=== PATIENT | male | born 1975 | race American Indian/Alaskan Native ===

== ENCOUNTER 2020-12-26 00:30 | Emergency (ER) | payer OTHER ==
[2020-12-26] MEDS ORDERED: predniSONE 20 MG TAB PO ONE (02:42)
[2020-12-26] MEDS ORDERED: IBUPROFEN 800 MG TAB PO ONE (02:42)
--- NOTE | 2020-12-26 02:50 | Emergency Department Report ---
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 Pain described as 5/10 soreness in achy exacerbated by movement and lifting. There is no numbness tingling there is no abrasion laceration or deformity. Range of motion is intact ED Review of Systems ROS: Stated complaint: LT ARM PAIN W/KNOT Other details as noted in HPI Constitutional: denies: chills, fever Eyes: denies: eye pain, eye discharge, vision change ENT: denies: ear pain, throat pain Respiratory: denies: cough, shortness of breath, wheezing Cardiovascular: denies: chest pain, palpitations Endocrine: no symptoms reported Gastrointestinal: denies: abdominal pain, nausea, diarrhea Genitourinary: as per HPI Musculoskeletal: other (forearm pain) Skin: denies: rash, lesions Neurological: denies: headache, weakness, paresthesias Psychiatric: denies: anxiety, depression Hematological/Lymphatic: denies: easy bleeding, easy bruising ED Past Medical Hx - Past Medical History Previous Medical History?: No - Surgical History Past Surgical History?: Yes Hx Cholecystectomy: Yes - Social History Smoking Status: Never Smoker Substance Use Type: None - Medications Home Medications: Home Medications Medication Instructions Recorded Confirmed Last Taken Type HYDROcodone/APAP 10-325 [[place] 1 each PO Q6HR PRN #24 tablet 09/25/13 Unknown Rx 10/325] Promethazine [Phenergan] 25 mg PO Q6H PRN #30 tablet 09/25/13 Unknown Rx Acetaminophen/Codeine [Tylenol #3] 1 tab PO Q6H PRN #15 tab 03/22/15 Unknown Rx Benzonatate [Tessalon Perles] 100 mg PO Q8HR #30 capsule 03/22/15 Unknown Rx Fluticasone [Flonase] 1 spray NS QDAY #1 bottle 03/22/15 Unknown Rx Acetaminophen/Codeine [Tylenol #3] 1 tab PO Q6H PRN #20 tab 10/12/15 Unknown Rx Clindamycin [Clindamycin CAP] 300 mg PO Q6HR #80 capsule 10/12/15 Unknown Rx Ibuprofen [Motrin] 600 mg PO Q8H PRN #40 tablet 10/12/15 Unknown Rx Cyclobenzaprine [Flexeril] 10 mg PO TID PRN #30 tablet 12/26/20 Unknown Rx Menthol/Camphor [[place] 1 applicatio TP Q6H PRN #1 tube 12/26/20 Unknown Rx Ointment] Naproxen 500 mg PO BID PRN #30 tablet 12/26/20 Unknown Rx predniSONE [Deltasone] 40 mg PO QDAY 5 Days #10 tab 12/26/20 Unknown Rx Upper Extremity Exam - Exam General: Vital signs noted. No distress. Alert and acting appropriately. Head and Torso: No HEENT Abnormality, No Neck Tenderness, No Chest/Lungs Abnormality, No Abdominal Tenderness, No Back Tenderness Shoulder Exam: Yes Normal Range of Motion in Shoulder, No Shoulder Tenderness, No Clavicle Tenderness, No Shoulder Deformity, No AC Joint Tenderness Arm Exam: No Arm/Humerus Tenderness, No Arm Deformity Elbow: No Elbow Tenderness, No Normal Range of Motion in Elbow, No Elbow Deformity Forearm: Yes Forearm Tenderness, Yes Pain with Pronation, Yes Pain with Supination, No Forearm Deformity Wrist: Yes Normal ROM in Wrist, No Wrist Tenderness, No Wrist Deformity, No Snuffbox Tenderness, No Pain with Axial Thumb Compression Hand: Yes Digit Tenderness, Yes Normal ROM in Digit(s), No Hand Tenderness, No Hand Deformity, No Digit(s) Deformity, No Tendon Dysfunction CMS Exam: Yes Normal Distal Pulses, Yes Normal Capillary Refill, Yes Normal Distal Sensation, No Broken Skin ED Medical Decision Making - Medical Decision Making This is a muscle strain secondary to overuse. 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 No xiphoid process tenderness PATIENT ASSESSMENT COORDINATOR is less than 3 seconds bilateral. Plan wrist splint, NSAIDs, steroids wrist exercises, moist heat therapy follow-up with PCP in 2 to 3 days. Patient verbalized agreement and understanding with discharge plan. Patient DC'd home in stable condition at this time. Critical care attestation.: If time is entered above; I have spent that time in minutes in the direct care of this critically ill patient, excluding procedure time. ED Disposition Clinical Impression: Strain of forearm, left Qualifiers: Encounter type: initial encounter Qualified Code(s): S56.912A - Strain of unspecified muscles, fascia and tendons at forearm level, left arm, initial encounter Disposition: TO HOME OR SELFCARE Is pt being admited?: No Does the pt Need Aspirin: No Condition: Stable Instructions: Muscle Strain, [id number]-[id number] Prescriptions: predniSONE [Deltasone] 40 mg PO QDAY 5 Days #10 tab Cyclobenzaprine [Flexeril] 10 mg PO TID PRN #30 tablet PRN Reason: Muscle Spasm Naproxen 500 mg PO BID PRN #30 tablet PRN Reason: pain Menthol/Camphor [[place] Ointment] 1 applicatio TP Q6H PRN #1 tube PRN Reason: pain Referrals: DR ALESSANDRO [Other] - 3-5 Days Forms: Work/School Release Form(ED) Time of Disposition: 02:50
== END 2020-12-26 03:00 | disposition home or self-care (01) ==
LOC: ED 00:30
DX: S56.912A Strain of unspecified muscles, fascia and tendons at forearm level, left arm, initial encounter (principal); Z90.49 Acquired absence of other specified parts of digestive tract; Z79.899 Other long term (current) drug therapy; X50.0XXA Overexertion from strenuous movement or load, initial encounter; Y93.89 Activity, other specified; Y92.89 Other specified places as the place of occurrence of the external cause; Y99.0 Civilian activity done for income or pay
CPT/HCPCS: 99282; J7512

== ENCOUNTER 2021-09-11 17:55 | Emergency (ER) | payer OTHER ==
[2021-09-11 18:39] LABS: Basophils % (Auto) 0.3 % (0.0-1.8); Eosinophils # (Auto) 0.1 K/mm3 (0.0-0.4); Eosinophils % (Auto) 2.1 % (0.0-4.3); Hemoglobin 15.5 gm/dl (11.8-15.2); Lymphocytes # (Auto) 0.9 K/mm3 (1.2-5.4); Lymphocytes % (Auto) 16.2 % (13.4-35.0); Mean Corpuscular HGB Conc 33 % (32-34); Mean Corpuscular Volume 84 fl (84-94); Monocytes # (Auto) 0.6 K/mm3 (0.0-0.8); Monocytes % (Auto) 10.1 % (0.0-7.3); Platelet Count 252 K/mm3 (140-440); Red Blood Count 5.63 M/mm3 (3.65-5.03); Red Cell Distribution Width 14.6 % (13.2-15.2)
--- NOTE | 2021-09-11 18:51 | Emergency Department Report ---
ED General Adult HPI - General Chief complaint: Weakness Stated complaint: NO FEELING IN LEGS, BODY PAIN Source: patient, family Mode of arrival: Wheelchair Limitations: No Limitations - History of Present Illness Initial comments: Patient presents to the emergency department with a chief complaint of numbness and tingling from his waist down. Patient states the symptoms started approximately 3 days ago. He states now is not able to move his right leg. Patient states he cannot feel the area between his rectum and his scrotum. He has not had a bowel movement in 2 days. He denies loss of control of his bladder though. He does have a non-Hodgkin's lymphoma. He denies chest pain, shortness breath, or abdominal pain. Patient states he is not able to walk or get up to go to the bathroom due to the inability to move his right leg and the numbness and tingling in his right and left leg. -: Sudden Location: lower extremity Consistency: constant Improves with: none Worsens with: none Associated Symptoms: denies other symptoms Treatments Prior to Arrival: none - Related Data Previous Rx's Medication Instructions Recorded Last Taken Type HYDROcodone/APAP 10-325 [[place] 1 each PO Q6HR PRN #24 tablet 09/25/13 Unknown Rx 10/325] Promethazine [Phenergan] 25 mg PO Q6H PRN #30 tablet 09/25/13 Unknown Rx Acetaminophen/Codeine [Tylenol #3] 1 tab PO Q6H PRN #15 tab 03/22/15 Unknown Rx Benzonatate [Tessalon Perles] 100 mg PO Q8HR #30 capsule 03/22/15 Unknown Rx Fluticasone [Flonase] 1 spray NS QDAY #1 bottle 03/22/15 Unknown Rx Acetaminophen/Codeine [Tylenol #3] 1 tab PO Q6H PRN #20 tab 10/12/15 Unknown Rx Clindamycin [Clindamycin CAP] 300 mg PO Q6HR #80 capsule 10/12/15 Unknown Rx Ibuprofen [Motrin] 600 mg PO Q8H PRN #40 tablet 10/12/15 Unknown Rx Cyclobenzaprine [Flexeril] 10 mg PO TID PRN #30 tablet 12/26/20 Unknown Rx Menthol/Camphor [[place] 1 applicatio TP Q6H PRN #1 tube 12/26/20 Unknown Rx Ointment] Naproxen 500 mg PO BID PRN #30 tablet 12/26/20 Unknown Rx predniSONE [Deltasone] 40 mg PO QDAY 5 Days #10 tab 12/26/20 Unknown Rx Allergies Allergy/AdvReac Type Severity Reaction Status Date / Time No Known Allergies Allergy Verified 09/25/13 05:32 ED Review of Systems ROS: Stated complaint: NO FEELING IN LEGS, BODY PAIN Other details as noted in HPI Comment: All other systems reviewed and negative Constitutional: denies: chills, fever Eyes: denies: eye pain, eye discharge, vision change ENT: denies: ear pain, throat pain Respiratory: denies: cough, shortness of breath, wheezing Cardiovascular: denies: chest pain, palpitations Endocrine: no symptoms reported Gastrointestinal: denies: abdominal pain, nausea, diarrhea Genitourinary: denies: urgency, dysuria Musculoskeletal: denies: back pain, joint swelling, arthralgia Skin: denies: rash, lesions Neurological: denies: headache, weakness, paresthesias Psychiatric: denies: anxiety, depression Hematological/Lymphatic: denies: easy bleeding, easy bruising ED Past Medical Hx - Surgical History Hx Cholecystectomy: Yes - Social History Smoking Status: Never Smoker Substance Use Type: None - Medications Home Medications: Home Medications Medication Instructions Recorded Confirmed Last Taken Type HYDROcodone/APAP 10-325 [[place] 1 each PO Q6HR PRN #24 tablet 09/25/13 Unknown Rx 10/325] Promethazine [Phenergan] 25 mg PO Q6H PRN #30 tablet 09/25/13 Unknown Rx Acetaminophen/Codeine [Tylenol #3] 1 tab PO Q6H PRN #15 tab 03/22/15 Unknown Rx Benzonatate [Tessalon Perles] 100 mg PO Q8HR #30 capsule 03/22/15 Unknown Rx Fluticasone [Flonase] 1 spray NS QDAY #1 bottle 03/22/15 Unknown Rx Acetaminophen/Codeine [Tylenol #3] 1 tab PO Q6H PRN #20 tab 10/12/15 Unknown Rx Clindamycin [Clindamycin CAP] 300 mg PO Q6HR #80 capsule 10/12/15 Unknown Rx Ibuprofen [Motrin] 600 mg PO Q8H PRN #40 tablet 10/12/15 Unknown Rx Cyclobenzaprine [Flexeril] 10 mg PO TID PRN #30 tablet 12/26/20 Unknown Rx Menthol/Camphor [[place] 1 applicatio TP Q6H PRN #1 tube 12/26/20 Unknown Rx Ointment] Naproxen 500 mg PO BID PRN #30 tablet 12/26/20 Unknown Rx predniSONE [Deltasone] 40 mg PO QDAY 5 Days #10 tab 12/26/20 Unknown Rx ED Physical Exam - General Limitations: No Limitations General appearance: alert, in no apparent distress - Head Head exam: Present: atraumatic, normocephalic - Eye Eye exam: Present: normal appearance - ENT ENT exam: Present: mucous membranes moist - Neck Neck exam: Present: normal inspection - Respiratory Respiratory exam: Present: normal lung sounds bilaterally. Absent: respiratory distress - Cardiovascular Cardiovascular Exam: Present: regular rate, normal rhythm. Absent: systolic murmur, diastolic murmur, rubs, gallop - GI/Abdominal GI/Abdominal exam: Present: soft, normal bowel sounds - Rectal Rectal exam: Present: other (Rectal exam chaperoned by nurse Brock FERGUSON; patient has no rectal tone on exam) - Back Exam Back exam: Present: normal inspection - Neurological Exam Neurological exam: Present: alert, oriented X3, other (Patient is not able to lift his right leg against gravity, patient has 4 out of 5 strength in the left lower extremity; patient has good sensation throughout his lower extremities to sharp and deep pressure) - Psychiatric Psychiatric exam: Present: normal affect, normal mood - Skin Skin exam: Present: warm, dry, intact, normal color. Absent: rash ED Course Vital Signs 09/11/21 09/11/21 18:00 19:20 Temperature 98.2 F Pulse Rate 90 Respiratory 16 18 Rate Blood Pressure 165/100 O2 Sat by Pulse 94 97 Oximetry ED Medical Decision Making - Lab Data Result diagrams: 09/11/21 18:30 09/11/21 18:30 Lab Results 09/11/21 09/11/21 Range/Units 18:30 18:30 WBC 5.8 (4.5-11.0) K/mm3 RBC 5.63 H (3.65-5.03) M/mm3 Hgb 15.5 H (11.8-15.2) gm/dl Hct 47.0 H (35.5-45.6) % MCV 84 (84-94) fl MCH 28 (28-32) pg MCHC 33 (32-34) % RDW 14.6 (13.2-15.2) % Plt Count 252 (140-440) K/mm3 Lymph % (Auto) 16.2 (13.4-35.0) % [place] % (Auto) 10.1 H (0.0-7.3) % Eos % (Auto) 2.1 (0.0-4.3) % Baso % (Auto) 0.3 (0.0-1.8) % Lymph # (Auto) 0.9 L (1.2-5.4) K/mm3 [place] # (Auto) 0.6 (0.0-0.8) K/mm3 Eos # (Auto) 0.1 (0.0-0.4) K/mm3 Baso # (Auto) 0.0 (0.0-0.1) K/mm3 Seg Neutrophils % 71.3 H (40.0-70.0) % Seg Neutrophils # 4.2 (1.8-7.7) K/mm3 Sodium 142 (137-145) mmol/L Potassium 3.9 (3.6-5.0) mmol/L Chloride 98.7 (98-107) mmol/L Carbon Dioxide 26 (22-30) mmol/L Anion Gap 21 mmol/L BUN 12 (9-20) mg/dL Creatinine 0.7 L (0.8-1.3) mg/dL Estimated GFR > 60 ml/min BUN/Creatinine Ratio 17 % Glucose 131 H (75-100) mg/dL Calcium 10.2 (8.4-10.2) mg/dL Total Bilirubin 1.40 H (0.1-1.2) mg/dL AST 38 (5-40) units/L ALT 50 (7-56) units/L Alkaline Phosphatase 71 (35-129) units/L Total Protein 7.6 (6.3-8.2) g/dL Albumin 5.0 (3.9-5) g/dL Albumin/Globulin Ratio 1.9 % - Radiology Data Radiology results: report reviewed - Medical Decision Making Review of the patient CT shows that he has a lesion at T8 Contacted our neurosurgeon Dr. Madrigal at approximately 11:15 PM and the patient was discussed in detail. Is felt the best decision is to transfer the patient to a facility with for neurosurgical capabilities Contacted [facility] at 11:27 PM with a return call from Dr. mera at 12:45 AM. 40 at this time he did not have capacity to take the patient 2 [place] at 12:30 AM and throughout complete diversion besides trauma, [place]well, STEMI Spoke to [facility] transfer line at 12:34 AM and they are on diversion as well Contacted [facility] in the room complete diversion as well. This phone call was made at 12:38 AM At 1 AM it was decided that the patient will be placed on the wait list at [facility] and they will call when the bed is available Patient was given a dose of Decadron in the ED Plan of care discussed with the patient. Critical care attestation.: If time is entered above; I have spent that time in minutes in the direct care of this critically ill patient, excluding procedure time. ED Disposition Clinical Impression: Complete lesion at T8 level of thoracic spinal cord, Lower extremity paralysis Disposition: 02 SHORT TERM HOSPITAL Is pt being admited?: No Does the pt Need Aspirin: No Condition: Stable
[2021-09-11 19:06] LABS: Alanine Aminotransferase 50 units/L (7-56); Blood Urea Nitrogen 12 mg/dL (9-20); Calcium 10.2 mg/dL (8.4-10.2); Hemolysis Index 17
[2021-09-11 19:29] LABS: BUN/Creatinine Ratio 17
[2021-09-11] MEDS ORDERED: MORPHINE 4 MG/1 ML INJ IV ONE ×2 (20:21→23:35)
[2021-09-11] MEDS ORDERED: ONDANSETRON 4 MG/2 ML INJ IV ONE (20:21)
--- NOTE | 2021-09-11 21:32 | Cat Scan Report ---
CT thoracic spine wo con INDICATION / CLINICAL INFORMATION: 46 years Male; saddle numbness. TECHNIQUE: Axial CT images of the thoracic spine were obtained. Sagittal and coronal reformatted images were pro duced. All CT scans at this location are performed using CT dose reduction for ALARA by means of auto mated exposure control. COMPARISON: None available. FINDINGS: POST-SURGICAL CHANGES: None. ALIGNMENT: Mild scoliosis seen. VERTEBRAE: No signs of fracture. Vertebral bodies are grossly normal in height throughout. There is heterogeneous appearance of the T8 vertebrae. There is abnormal soft tissue along the rightw zora margin of the T8 vertebral body as well. Neoplastic process cannot be excluded. Dedicated pre and postcontrast MRI of the thoracic spine would be helpful for further evaluation. Remainder of the [place] tebrae are grossly normal in appearance. INTERVERTEBRAL DISCS: No significant abnormality. No definitive signs of dominant herniation. Within the vertebral canal along the right posterolateral margin, there may be an extra medullary les ion at the T7 and T8 levels. Dedicated pre and postcontrast MRI of the thoracic spine would be helpfu l for further evaluation. PARASPINAL SOFT TISSUES: No significant abnormality. ADDITIONAL FINDINGS: None. IMPRESSION: 1. Abnormal appearance at T8 as described above. Underlying neoplastic process cannot be excluded. De dicated MRI of the thoracic spine with and without contrast would be helpful for further evaluation. 2. Extra medullary lesion in the vertebral canal at the T7 and T8 levels may be present as well. Agai n, MRI would be of benefit. Signer Name: Avtar Gordon MD, III Signed: 09/11/2021 9:28 PM Workstation Name: [id number]
--- NOTE | 2021-09-11 22:54 | Cat Scan Report ---
. CT LUMBAR SPINE WO CON INDICATION / CLINICAL INFORMATION: 46 years Male; saddle numbness. TECHNIQUE: Axial CT images of the lumbar spine were obtained. Sagittal and coronal reformatted images were prod uced. All CT scans at this location are performed using CT dose reduction for ALARA by means of autom ated exposure control. COMPARISON: None available. FINDINGS: POST-SURGICAL CHANGES: None. ALIGNMENT: No significant abnormality. VERTEBRAE: No signs of fracture. Vertebral bodies are grossly normal in height throughout. No signif icant facet joint disease or osseous foraminal narrowing appreciated. INTERVERTEBRAL DISCS: No significant abnormality. PARASPINAL SOFT TISSUES: No significant abnormality. ADDITIONAL FINDINGS: Prior cholecystectomy on the right. IMPRESSION: 1. No single, dominant cause for patient's symptomatology appreciated. Signer Name: Avtar Gordon MD, III Signed: 09/11/2021 10:50 PM Workstation Name: [id number]
[2021-09-12] MEDS ORDERED: dexAMETHasone 20 MG/5 ML VIAL IV ONE (01:03)
[2021-09-12] MEDS ORDERED: ONDANSETRON 4 MG ODT TAB PO PRN (18:49)
[2021-09-12] MEDS ORDERED: HYDROcodone/ACETAMINOPHEN 10-325MG TAB PO ONE (18:50)
[2021-09-12] MEDS ORDERED: dexAMETHasone 4 MG/ML VIAL IV ONE (19:26)
[2021-09-12 21:21] VITALS: BP 127/76
[2021-09-12] MEDS ORDERED: dexAMETHasone 4 MG/ML VIAL IV SCH (22:00)
== END 2021-09-12 22:40 | disposition short-term general hospital (02) ==
LOC: ED 17:55
DX: S24.119A Complete lesion at unspecified level of thoracic spinal cord, initial encounter (principal); G83.9 Paralytic syndrome, unspecified; Z90.49 Acquired absence of other specified parts of digestive tract; Z79.899 Other long term (current) drug therapy; X58.XXXA Exposure to other specified factors, initial encounter; Y93.89 Activity, other specified; Y92.89 Other specified places as the place of occurrence of the external cause; Y99.8 Other external cause status
CPT/HCPCS: 36415; 72128; 72131; 80053; 85025; 96374; 96375; 96376; 99285; J1100; J2270; J2405; J3490; Q0162